=== PATIENT | male | born 1950 | race Caucasian/White ===

== ENCOUNTER 2016-09-19 14:55 | Emergency (ER) | payer MEDICARE ==
[2016-09-19 16:01] LABS: HEMOGLOBIN 17.6 gm/dl (14.0-17.5); RED BLOOD COUNT 6.15 M/UL (4.20-5.50); WHITE BLOOD COUNT 8.4 K/UL (4.5-11.0)
[2016-09-19 16:28] LABS: BUN/CREATININE RATIO 11 (0-10)
[2016-09-28] MEDS ORDERED: METFORMIN HCL1000 MG PO (08:36)
[2016-09-28] MEDS ORDERED: LISINOPRIL10 MG PO (08:37)
[2016-09-28] MEDS ORDERED: LIPITOR TAB 2020 MG PO (08:37)
[2016-09-28] MEDS ORDERED: OXYCODONE HCL10 MG PO (08:38)
[2016-09-28] MEDS ORDERED: CARAFATE1 GM PO (08:38)
[2016-09-28] MEDS ORDERED: DEXILANT60 MG PO (08:39)
[2016-09-28] MEDS ORDERED: PLAVIX 75 MG TA75 MG PO (08:40)
[2016-09-28] MEDS ORDERED: NEURONTIN 300300 MG PO (08:41)
[2016-09-28] MEDS ORDERED: FENOFIBRATE145 MG PO (08:41)
[2016-09-28] MEDS ORDERED: OMEPRAZOLE20 M1 PO (08:42)
[2016-09-28] MEDS ORDERED: QUETIAPINE FUMA25 MG PO (08:42)
[2016-09-28] MEDS ORDERED: ASPIR 8181 MG PO (08:43)
== END 2016-09-19 19:22 | disposition home or self-care (01) ==
LOC: ER1 14:55
PROVIDERS: Physician Assistant
DX: K80.20 Calculus of gallbladder without cholecystitis without obstruction (principal); K86.2 Cyst of pancreas; E11.9 Type 2 diabetes mellitus without complications; I10 Essential (primary) hypertension; J44.9 Chronic obstructive pulmonary disease, unspecified; F17.200 Nicotine dependence, unspecified, uncomplicated; Z95.5 Presence of coronary angioplasty implant and graft; Z79.84 Long term (current) use of oral hypoglycemic drugs; Z79.899 Other long term (current) drug therapy
CPT/HCPCS: 36415; 80053; 81001; 82150; 83690; 84484; 85025; 93005; 99284; J7050; Q9962

== ENCOUNTER → 2016-09-28 | Day surgery (SDC) | payer MEDICARE ==
[~2016-09-28] VITALS: Ht 188 cm; Wt 89.8 kg
[~2016-09-28] MED LIST: ASPIR 8181 MG PO; CARAFATE1 GM PO; DEXILANT60 MG PO; FENOFIBRATE145 MG PO; LIPITOR TAB 2020 MG PO; LISINOPRIL10 MG PO; METFORMIN HCL1000 MG PO; NEURONTIN 300300 MG PO; OMEPRAZOLE20 M1 PO; OXYCODONE HCL10 MG PO; PLAVIX 75 MG TA75 MG PO; QUETIAPINE FUMA25 MG PO
== END | disposition home or self-care (01) ==
LOC: OR 07:42
PROVIDERS: Internal Medicine Gastroenterology
PROC: 0DB78ZX Excision of Stomach, Pylorus, Via Natural or Artificial Opening Endoscopic, Diagnostic (ICD-10-PCS; principal; 2016-09-28 11:30)
DX: K21.0 Gastro-esophageal reflux disease with esophagitis (principal); I10 Essential (primary) hypertension; E11.9 Type 2 diabetes mellitus without complications; F17.210 Nicotine dependence, cigarettes, uncomplicated; Z79.82 Long term (current) use of aspirin; Z79.899 Other long term (current) drug therapy
CPT/HCPCS: 82962; J2250; J3010; J7030